=== PATIENT | male | born 1960 | race Caucasian/White ===

== ENCOUNTER 2022-03-08 11:45 | Emergency (ER) | payer OTHER | END 2022-03-08 12:43 | disposition home or self-care (01) | LOC: MW.ED 11:45 | DX: K04.7 Periapical abscess without sinus (principal) | CPT/HCPCS: 99282 ==

== ENCOUNTER 2022-07-05 07:04 | Observation (INO) | payer MEDICARE ==
[~2022-07-05 07:04] MED LIST: Famotidine 20 MG/2 ML SDV IVPUSH SCH; Ropivacaine 49.25 ML, Ketorolac 30 MG, EPINEPHrine 0.5 MG, cloNIDine 80 MCG in Sodium C... INJECT SCH; Tranexamic Acid 1,000 MG in Sodium Chloride 0.9% 100 ML IV ONE
[2022-07-05] MEDS ORDERED: VANCOmycin 1.75 GM/350 ML 1.75 GM in Premix Bag 1 BAG IV ONE (08:00)
[2022-07-05] MEDS ORDERED: ceFAZolin 2 GM in Premix Bag 1 BAG IV SCH (08:00)
[2022-07-05] MEDS ORDERED: Naloxone 0.4 MG/ML SDV IVPUSH PRN (11:13)
[2022-07-05] MEDS ORDERED: HYDROmorphone 1 MG/ML Syringe IVPUSH PRN (11:13)
[2022-07-05] MEDS ORDERED: Metoclopramide 10 MG/2 ML SDV IVPUSH PRN (11:13)
[2022-07-05] MEDS ORDERED: Albuterol 0.083% 2.5 MG/3 ML Neb Soln NEB PRN (11:13)
[2022-07-05] MEDS ORDERED: Morphine 2 MG/ML SYRINGE IVPUSH PRN (11:13)
[2022-07-05] MEDS ORDERED: Ondansetron 4 MG/2 ML SDV IVPUSH PRN ×2 (11:13→18:55)
[2022-07-05] MEDS ORDERED: fentaNYL 50 MCG/ML SDV IVPUSH PRN (11:13)
[2022-07-05] MEDS: Lactated Ringers 1,000 ML IV SCH ×2 (11:27→22:38)
[2022-07-05] MEDS ORDERED: Famotidine 20 MG/2 ML SDV ONE (11:30)
[2022-07-05] MEDS ORDERED: LORazepam 2 MG/ML SDV IVPUSH ONE (11:54)
[2022-07-05] MEDS ORDERED: LORazepam 2 MG/ML SDV ONE (12:01)
[2022-07-05] MEDS ORDERED: Bupivacaine 0.5% 10 ML SDV ONE (14:47)
[2022-07-05] MEDS ORDERED: Tranexamic Acid 1,000 MG/10 ML Vial ONE (14:51)
[2022-07-05] MEDS ORDERED: ceFAZolin 2 GM Vial ONE (14:51)
[2022-07-05] MEDS ORDERED: Lidocaine 2% 5 ML SDV ONE (14:51)
[2022-07-05] MEDS ORDERED: fentaNYL 100 MCG/2 ML SDV ONE ×2 (14:52→15:14)
[2022-07-05] MEDS ORDERED: propofoL 100 ML ONE (14:52)
[2022-07-05] MEDS ORDERED: Propofol 200 MG/20 ML SDV ONE ×2 (15:15→18:39)
[2022-07-05] MEDS ORDERED: Midazolam 1 MG/ML 2 ML SDV ONE (16:16)
[2022-07-05] MEDS ORDERED: Ketamine 500 mg/10 ML MDV ONE (16:29)
[2022-07-05] MEDS ORDERED: Phenylephrine HCl In 0.9% NaCl 1 MG/10 ML Vial ONE (17:59)
[2022-07-05] MEDS ORDERED: ePHEDrine 50 MG/ML SDV ONE (17:59)
[2022-07-05] MEDS ORDERED: Glycopyrrolate 0.2 MG/ML SDV ONE (17:59)
[2022-07-05] MEDS ORDERED: Sodium Chloride 0.9% 2.5 ML Syringe FLUSH PRN (18:55)
[2022-07-05] MEDS ORDERED: traMADol 50 MG Tab PO PRN (18:55)
[2022-07-05] MEDS ORDERED: Aluminum Hydroxide/Magnesium Hydroxide/Simethicone XS Susp 30 ML Cup PO PRN (18:55)
[2022-07-05] MEDS ORDERED: Bisacodyl 10 MG Supp RECTAL PRN (18:55)
[2022-07-05] MEDS ORDERED: Sodium Chloride 0.9% 10 ML Syringe FLUSH PRN (18:55)
[2022-07-05] MEDS ORDERED: diphenhydrAMINE 25 MG Cap PO PRN (18:55)
[2022-07-05] MEDS ORDERED: Acetaminophen 325 MG Tab PO PRN (21:00)
[2022-07-05] MEDS: Acetaminophen 325 MG Tab PO SCH (21:44)
[2022-07-05] MEDS: Docusate Sodium 100 MG Cap PO SCH (21:44)
[2022-07-05] MEDS: Morphine 2 MG/ML SYRINGE IVPUSH PRN (22:32)
[2022-07-06] MEDS: oxyCODONE 5 MG Tab PO PRN ×3 (00:12→10:13)
[2022-07-06] MEDS: ceFAZolin 2 GM in Premix Bag 1 BAG IV SCH ×2 (01:00→08:40)
[2022-07-06] MEDS: Acetaminophen 325 MG Tab PO SCH ×2 (03:34→08:38)
[2022-07-06] MEDS: Morphine 2 MG/ML SYRINGE IVPUSH PRN ×2 (04:38→08:44)
[2022-07-06 07:13] LABS: CARBON DIOXIDE,CO2 24.3 mmol/L (21.0-32.0); POTASSIUM,K 3.9 mmol/L (3.5-5.1)
[2022-07-06] MEDS ORDERED: Magnesium Sulfate/Water 2 GM in Premix Bag 1 BAG IV ONE (08:05)
[2022-07-06] MEDS: Docusate Sodium 100 MG Cap PO SCH (08:39)
[2022-07-06] MEDS ORDERED: Aspirin 325 MG Tab PO SCH (09:00)
[2022-07-06] MEDS ORDERED: Polyethylene Glycol 3350 Powder 17 GM Packet PO SCH (09:00)
[2022-07-06] MEDS ORDERED: Famotidine 20 MG Tab PO SCH (09:00)
[2022-07-06] MEDS ORDERED: Lisinopril 10 MG Tab PO SCH (09:00)
[2022-07-06] MEDS ORDERED: Ferrous Sulfate 325 MG Tab PO SCH (10:15)
[2022-07-06] MEDS ORDERED: VITAMIN E CHEW SCH (10:15)
[2022-07-06] MEDS ORDERED: ASCORBIC ACID CHEW SCH (10:15)
[2022-07-06] MEDS ORDERED: BIOTIN CHEW SCH (10:15)
[2022-07-06] MEDS ORDERED: Multivitamin Tab PO SCH (10:30)
[2022-07-06] MEDS ORDERED: Calcium Carbonate/Vitamin D3 1500 MG-400 Units Tab PO SCH (14:00)
[2022-07-07] MEDS ORDERED: Cyanocobalamin (Vitamin B12) 500 MCG Tab PO SCH (09:00)
== END 2022-07-06 13:20 | disposition home or self-care (01) ==
LOC: INTOOBSV 10:39 → MW.MS 10:39
PROVIDERS: ADMIT Orthopaedic Surgery; ATTEND Orthopaedic Surgery
DX: M16.12 Unilateral primary osteoarthritis, left hip (principal); Q74.2 Other congenital malformations of lower limb(s), including pelvic girdle; Z79.899 Other long term (current) drug therapy; Z79.82 Long term (current) use of aspirin; I12.9 Hypertensive chronic kidney disease with stage 1 through stage 4 chronic kidney disease, or unspecified chronic kidney disease; N18.9 Chronic kidney disease, unspecified; E66.9 Obesity, unspecified; F17.210 Nicotine dependence, cigarettes, uncomplicated
CPT/HCPCS: 27130; 36415; 73501; 80048; 83735; 85014; 85018; 86850; 86900; 86901; 97116; 97530; A9270; J0171; J0690; J0735; J1885; J2060; J2250; J2270; J2704; J2795; J3010; J3370; J3475; J3490; J7120; 01214

== ENCOUNTER 2023-01-24 10:48 | Emergency (ER) | payer OTHER ==
[2023-01-24] MEDS ORDERED: Lidocaine 1% PF 2 ML SDV INJECT ONE (11:00)
[2023-01-24] MEDS ORDERED: Bupivacaine 0.5% 10 ML SDV INJECT ONE (11:00)
== END 2023-01-24 11:36 | disposition home or self-care (01) ==
LOC: MW.ED 10:48
DX: K02.9 Dental caries, unspecified (principal); I10 Essential (primary) hypertension; E66.9 Obesity, unspecified; Z68.36 Body mass index [BMI] 36.0-36.9, adult; Z79.899 Other long term (current) drug therapy; Z79.82 Long term (current) use of aspirin
CPT/HCPCS: 64400; 99282; J3490

== ENCOUNTER 2023-06-25 14:32 | Emergency (ER) | payer MEDICARE ==
[2023-06-25 15:16] LABS: APPEARANCE,URINE CLEAR; BILIRUBIN,URINE NEGATIVE (NEGATIVE); GLUCOSE,URINE NEGATIVE (NEGATIVE); KETONES,URINE NEGATIVE (NEGATIVE); LEUKOCYTE ESTERASE,URINE NEGATIVE (NEGATIVE); NITRITE,URINE NEGATIVE (NEGATIVE); OCCULT BLOOD,URINE NEGATIVE (NEGATIVE); PH,URINE 5.5 (5.0-8.0); PROTEIN,URINE NEGATIVE (NEGATIVE); UROBILINOGEN,URINE 0.2 EU/dL (<2.0)
[2023-06-25 15:22] LABS: COLOR,URINE DARK YELLOW
== END 2023-06-25 16:39 | disposition home or self-care (01) ==
LOC: MW.ED 14:32
DX: R10.9 Unspecified abdominal pain (principal); I10 Essential (primary) hypertension; E66.9 Obesity, unspecified; F17.210 Nicotine dependence, cigarettes, uncomplicated; Z68.33 Body mass index [BMI] 33.0-33.9, adult; Z79.899 Other long term (current) drug therapy
CPT/HCPCS: 74176; 74176-26; 81003; 99283; 99284